=== PATIENT | male | born 1945 | race American Indian/Alaskan Native ===

== ENCOUNTER 2018-04-30 06:06 | Day surgery (SDC) | payer MEDICARE ==
[2018-04-30 06:45] VITALS: BMI 18.6
[2018-04-30 07:34] LABS: INR 1.2; PROTHROMBIN TIME 13.6 SECONDS (9.7-12.2)
--- NOTE | 2018-04-30 07:43 | CP.SDSHP ---
Same Day Surgery H & P - History Proposed Procedure: egd. colonoscopy - Previous Medical/Surgical History Cardiac: Hypertension, PVD, Other (syncope, hyperlipidemia, ) Pulmonary: Emphysema/COPD, Other (Pulmonary embolism-10/29) Misc: Other (prostate cancer, ) Comments: Cleared by Dr Boswell on 04/17 to stop Coumadin for 4 days and bridge with Lovenox 60mg bid. Managed and instructed by Dr Boswell. Previous Surgical History: Prostatectomy. RIH repair - Allergies Allergies: Allergies No Known Allergies Allergy (Verified 04/30/18 06:44) - Physical Exam Vital Signs: Vital Signs 04/30/18 07:27 Temperature 97.7 F Pulse Rate 90 Respiratory 20 Rate Blood Pressure 116/78 O2 Sat by Pulse 98 Oximetry Mental Status: Alert & Oriented x3 Neuro: WNL Heart: WNL Lungs: WNL GI: WNL - Impression Impression: fecal occult blood loss. weight loss Pt. Evaluated Today:Candidate for Anesthesia & Procedure: Yes - Date & Time Date: 04/30/18 Time: 07:43 Short Stay Discharge - Short Stay Discharge Admitting Diagnosis/Reason for Visit: OTHER FECAL ABNORMALITIES, ABNORMAL WEIGHT LOSS Disposition: HOME/ ROUTINE
[2018-04-30] MEDS ORDERED: Propofol 10 mg/ml Inj (20 ML) ONE ×2 (07:46→08:02)
[2018-04-30 09:00] VITALS: TEMP 97.6
[2018-04-30 11:00] VITALS: BP 119/75; PULSE 95; RESP 20; O2SAT 100
== END 2018-04-30 09:30 | disposition home or self-care (01) ==
LOC: C.ENDO 06:06
PROVIDERS: ATTEND Internal Medicine Gastroenterology
DX: R19.5 Other fecal abnormalities (principal); R63.4 Abnormal weight loss; D12.2 Benign neoplasm of ascending colon; K64.8 Other hemorrhoids; K21.9 Gastro-esophageal reflux disease without esophagitis; K44.9 Diaphragmatic hernia without obstruction or gangrene
CPT/HCPCS: 36415; 43239; 45385; 85610; 85730; 88305; 88342; J2704; J3010